=== PATIENT | female | born 1990 | race Caucasian/White ===

== ENCOUNTER → 2017-01-27 | Outpatient (CLI) | payer BC ==
[~2017-01-27] MED LIST: MTR600X PO; POLY335019 PO; PRENTAB26 PO; TYL325X PO
[2017-01-27 14:31] LABS: URINE APPEARANCE CLEAR (CLEAR); URINE BILIRUBIN NEG (NEG); URINE COLOR YELLOW; URINE NITRITE NEG (NEG); URINE PH 7.5 (4.5-7.5); URINE SPECIFIC GRAVITY 1.013 (1.000-1.030); UROBILINOGEN NEG (NEG)
[2017-01-27 14:32] LABS: MANUAL MICROSCOPIC REQUIRED? NO; REVIEW REQ? NO
== END | disposition home or self-care (01) ==
LOC: C.LABSPEC 13:43
PROVIDERS: ATTEND Obstetrics & Gynecology
DX: O09.291 Supervision of pregnancy with other poor reproductive or obstetric history, first trimester (principal)

== ENCOUNTER → 2017-02-03 | Outpatient (CLI) | payer BC ==
[2017-02-06 02:02] LABS: CHLAMYDIA TRACH RNA*** NOT DETECTED (NOT DETECTED); GC (NEIS GONORRHOEAE)RNA** NOT DETECTED (NOT DETECTED)
== END | disposition home or self-care (01) ==
LOC: C.LABSPEC 13:52
PROVIDERS: ATTEND Obstetrics & Gynecology
DX: O09.291 Supervision of pregnancy with other poor reproductive or obstetric history, first trimester (principal); Z3A.00 Weeks of gestation of pregnancy not specified

== ENCOUNTER → 2017-02-03 | Outpatient (CLI) | payer BC ==
[2017-02-03 13:22] LABS: BASO % 0.1 %; BASO ABS # 0.01 K/uL (0-0.2); COMPLETE YES; EOS % 1.7 %; HEMATOCRIT 37.2 % (37-47); IG% 0.2 %; LYMPH % 24.8 %; LYMPH ABS # 2.39 K/uL (1.2-3.4); MEAN CELL VOLUME 90.3 fL (80-100); MEAN CORPUSCULAR HEMOGLOBIN 30.3 pg (25-34); MEAN CORPUSCULAR HGB CONC 33.6 g/dl (32-36); MEAN PLATELET VOLUME 10.2 fL (7.4-10.4); MONO % 6.7 %; NEUT % 66.5 %; PLATELET COUNT 250 K/uL (130-400); RED BLOOD COUNT 4.12 M/uL (4.2-5.4); WHITE BLOOD COUNT 9.63 K/uL (4.8-10.8)
== END | disposition home or self-care (01) ==
LOC: C.LAB1850 12:21
PROVIDERS: ATTEND Obstetrics & Gynecology
DX: O09.291 Supervision of pregnancy with other poor reproductive or obstetric history, first trimester (principal); Z3A.00 Weeks of gestation of pregnancy not specified

== ENCOUNTER → 2017-03-27 | Outpatient (CLI) | payer BC ==
[2017-03-27 16:59] LABS: GTGD 50 Grams
== END | disposition home or self-care (01) ==
LOC: C.LAB1850 15:50
PROVIDERS: ATTEND Obstetrics & Gynecology
DX: O09.292 Supervision of pregnancy with other poor reproductive or obstetric history, second trimester (principal); Z3A.00 Weeks of gestation of pregnancy not specified

== ENCOUNTER → 2017-06-20 | Outpatient (CLI) | payer BC ==
[2017-06-20 17:19] LABS: HEMATOCRIT 32.4 % (37-47)
[2017-06-20 17:43] LABS: GTGD 50 Grams
[2017-06-20 19:36] LABS: URINE APPEARANCE CLEAR (CLEAR); URINE BILIRUBIN NEG (NEG); URINE COLOR YELLOW; URINE NITRITE NEG (NEG); UROBILINOGEN NEG (NEG)
[2017-06-20 19:50] LABS: MANUAL MICROSCOPIC REQUIRED? NO; REVIEW REQ? NO
== END | disposition home or self-care (01) ==
LOC: C.LAB1850 16:04
PROVIDERS: ATTEND Obstetrics & Gynecology
DX: O09.893 Supervision of other high risk pregnancies, third trimester (principal); Z3A.00 Weeks of gestation of pregnancy not specified

== ENCOUNTER → 2017-08-11 | Outpatient (CLI) | payer BC | END | disposition home or self-care (01) | LOC: C.LABSPEC 17:32 | PROVIDERS: ATTEND Obstetrics & Gynecology | DX: Z34.83 Encounter for supervision of other normal pregnancy, third trimester (principal) ==

== ENCOUNTER 2017-09-05 20:40 | Inpatient (IN) | payer BC ==
[~2017-09-05] VITALS: Ht 165.1 cm; Wt 93.2 kg
[2017-09-05] MEDS ORDERED: LACTATED RINGER'S 1000ML 1,000 ML IV SCH (21:13)
[2017-09-05] MEDS ORDERED: LACTATED RINGER'S 1000ML 1,000 ML IV PRN (21:13)
[2017-09-05] MEDS ORDERED: FERR1TAB23 (21:44)
[2017-09-05 21:45] VITALS: Ht 165.1 cm; Wt 93.2 kg
[2017-09-05] MEDS ORDERED: BUPIVACAINE 0.25% 30 ML VIAL ONE (21:58)
[2017-09-05] MEDS ORDERED: EpHEDrine SULFATE INJ 50 MG/ML AMP ONE (21:58)
[2017-09-05 21:59] LABS: HEMATOCRIT 34.8 % (37-47); HEMOGLOBIN 11.8 g/dL (12.0-16.0); MEAN CELL VOLUME 91.3 fL (80-100); MEAN CORPUSCULAR HGB CONC 33.9 g/dl (32-36); MEAN PLATELET VOLUME 10.7 fL (7.4-10.4); PLATELET COUNT 189 K/uL (130-400); RED CELL DISTRIBUTION WIDTH CV 13.9 % (11.5-14.5); WHITE BLOOD COUNT 8.67 K/uL (4.8-10.8)
[2017-09-05] MEDS ORDERED: FENTANYL 2MCG/ML ROPIV 1.25MG/ML 100ML BAG EPI ONE (21:59)
[2017-09-05] MEDS ORDERED: FENTANYL CITRATE INJ 50 MCG/1 ML 2 ML VIAL ONE (21:59)
[2017-09-05 22:17] LABS: ALBUMIN 2.7 gm/dl (3.4-5.0); CALCIUM 8.6 mg/dl (8.5-10.1); CREATININE 0.55 mg/dl (0.60-1.20); POTASSIUM 3.7 mmol/L (3.5-5.1)
[2017-09-05 22:20] LABS: TOTAL PROTEIN 6.4 gm/dl (6.4-8.2)
[2017-09-05] MEDS ORDERED: NALOXONE HCL INJ 1 MG in SODIUM CHLORIDE 0.9% 1000ML 1,000 ML IV PRN (23:08)
[2017-09-05] MEDS ORDERED: LACTATED RINGER'S 1000ML 500 ML IV PRN (23:08)
[2017-09-05] MEDS ORDERED: NALOXONE HCL INJ 0.4 MG/1 ML VIAL/CARP IV PRN (23:15)
[2017-09-05] MEDS ORDERED: FENTANYL 2MCG/ML ROPIV 1.25MG/ML 100ML BAG EPI PRN (23:15)
[2017-09-05] MEDS ORDERED: ONDANSETRON INJ 2 MG/ML 2 ML VIAL IV PRN (23:15)
[2017-09-05] MEDS ORDERED: DiphenhydrAMINE HCL 50 MG/ML VIAL IV PRN (23:15)
[2017-09-05] MEDS ORDERED: NALBUPHINE HCL INJ 10 MG/ML AMP IV PRN (23:15)
[2017-09-05] MEDS ORDERED: EpHEDrine SULFATE INJ 50 MG/ML AMP IV PRN (23:15)
[2017-09-06] MEDS ORDERED: OXYTOCIN 30 UNITS/500ML NSS IV ONE (02:08)
[2017-09-06] MEDS ORDERED: CARBOPROST TROMETHAMINE 250 MCG/ML AMP ONE (02:38)
[2017-09-06] MEDS ORDERED: OXYCODONE/ACETAMINOPHEN 5-325 TAB PO PRN (03:00)
[2017-09-06] MEDS ORDERED: MISOPROSTOL 200 MCG TAB PR SCH (03:00)
[2017-09-06] MEDS ORDERED: ACETAMINOPHEN 325 MG TAB PO PRN (03:00)
[2017-09-06] MEDS ORDERED: CARBOPROST TROMETHAMINE 250 MCG/ML AMP IM ONE (03:00)
[2017-09-06] MEDS ORDERED: OXYTOCIN INJ 20 UNITS in LACTATED RINGER'S 1000ML 1,000 ML IV SCH (03:00)
[2017-09-06] MEDS ORDERED: LANOLIN OINT EXT PRN (03:00)
[2017-09-06] MEDS ORDERED: OXYTOCIN 30 UNITS/500ML NSS IV PRN (03:00)
[2017-09-06] MEDS ORDERED: HYDROCORTISONE ACETATE 25 MG SUPP PR PRN (03:00)
[2017-09-06] MEDS ORDERED: BENZOCAINE 20% AER SPR 82.5 GM CAN EXT PRN (03:00)
[2017-09-06] MEDS ORDERED: SUPERCREAM 0.870 % 15GM JAR EXT PRN (03:00)
[2017-09-06] MEDS ORDERED: DIPHTHERIA/TETANUS/PERTUSSIS 0.5 ML SYR/VIAL IM. ONE (03:00)
--- NOTE | 2017-09-06 03:55 | DELIVERY SUMMARY ---
DATE OF OPERATION: 09/06/2017 VAGINAL DELIVERY SUMMARY: The patient dilated to complete and pushed to deliver a viable female infant, Apgars 8 and 9 via over a second-degree perineal laceration. Mouth and nose bulb suctioned at the perineum. Shoulders and body was delivered with effective maternal expulsive efforts. Infant was vigorous and crying at . Cord clamped and to maternal abdomen and the cord was doubly clamped and cut. Cord blood collection took place in the usual fashion per the patient's private cord collection kit. Cord blood obtained as specimen for baby's blood type. Laceration repaired in the usual fashion using 3-0 Vicryl. Additional left labial laceration reapproximated using 4-0 Vicryl. During delivery of the placenta, the cord avulsed. The placenta was 50% within the vagina. It was grasped and removed. On exam of placenta, succinturate lobe noted. Uterine tone was poor. Dilute IV Pitocin was infusing. Additional 800 mcg of rectal Cytotec was administered. The blood pressure was evaluated. Due to persistent issues with the uterine tone, 0.25mg Hemabate was administered intramuscularly. The uterine tone improved. The bleeding slowed. The estimated blood loss was 600 mL. The cervix and sulci were inspected and intact without any obvious bleeding. The source of the bleeding appeared to be uterine atony. The mother and baby were stable in recovery. I attest to the content of the Intraoperative Record and any orders documented therein. Any exceptions are noted below. MTDD
[2017-09-06 05:55] VITALS: BP 144/83; PULSE 98; TEMP 36.7
--- NOTE | 2017-09-06 06:00 | Anesthesia Procedure Note ---
Anesthesia Epidural Removal Nt Date & Time Sep 06, 2017 at 06:00 Vital Signs Pain Intensity: 0.0 Notes Mental Status: alert / awake / arousable, participated in evaluation Nausea / Vomiting: adequately controlled Pain: adequately controlled Airway Patency, RR, SpO2: stable & adequate BP & HR: stable & adequate Hydration State: stable & adequate Neuraxial Anesthesia: was administered, sensory block is resolving Anesthetic Complications: no major complications apparent, pt satisfied with anesthetic care Epidural: removed without complications, with tip intact
--- NOTE | 2017-09-06 07:05 | Discharge Instructions ---
Discharge Instructions Date of Service Sep 06, 2017. Admission Reason for Admission: Check Rupture Membranes Discharge Discharge Diagnosis / Problem: Vaginal Delivery Discharge Goals Goal(s): Routine recovery after delivery Medications Continue Dispensed Medications: supercream, dermaplast, tucks, lansinoh Activity Recommendations Activity Limitations: per Instructions/Follow-up section . Instructions / Follow-Up Instructions / Follow-Up ACTIVITY RECOMMENDATIONS: * Gradual return to full activity over the next 2-3 weeks. * No lifting - nothing heavier than baby over the next 2-3 weeks. * Do not engage in vigorous exercise, sexual activity or sports until cleared by your physician. * Do not drive or operate any motorized equipment until cleared by your physician. * You may shower/bathe daily. MEDICATIONS: For discomfort or pain, you may use Acetaminophen (Tylenol), Ibuprofen (Advil), or Naproxen (Aleve) following the package directions. For constipation you may use Colace following the package directions. BREAST CARE: If you are not breast feeding: * Wear a supportive bra 24 hours a day for one to two weeks. * Avoid stimulating your breasts and nipples as much as possible during the first few weeks after delivery. * When taking a shower, have the warm water hit your back, not breasts. * When your breasts feel full, apply ice packs. Usually three to four times a day helps ease the discomfort. * Take a mild pain medication (Tylenol / Motrin) when you are uncomfortable. If breast feeding: * Use breast milk to lubricate nipples. Lansinoh cream may be used for sore nipples. You do not need to remove cream prior to breast feeding. If using a different brand of cream, check the label for directions regarding removal of cream prior to nursing. * Wear a supportive bra. * If having problems with breasts or breast feeding, call a building energy consultant or your health care provider. EPISIOTOMY CARE: After delivery, if you have an episiotomy (stitches), the following steps will ease discomfort and aid healing. * For the first 24 hours after delivery, place ice packs next to your episiotomy to help reduce swelling. * After the first 24 hour-period, sitz baths, either portable or in the tub, are suggested. A shower with a shower arm sprayed over the episiotomy may be comforting. * Nathalia care should be done after each voiding and bowel movement. Squirt warm water from a plastic bottle over the perineum (region of the body between the anus and urinary opening) and pat dry. * Use Dermoplast to ease discomfort. Shake container. [place] directly over the episiotomy. Place a Tucks on a clean sanitary pad next to your episiotomy. SPECIAL CARE INSTRUCTIONS: When you are discharged from the hospital, it is important for you to follow the instructions listed below: * During the first week at home, you should be able to care for yourself and your baby. In addition, the usual light household activities are encouraged. * Limit your activities to the way you feel. Do not try to clean the house or move furniture. Be sensible. * If you actively engage in sports and have done so up until the time of your delivery, you may resume these activities as soon as you feel able. This may take up to one month or even longer. Use good judgment. * Continue to take your vitamins for at least six weeks after the of your baby. * Your diet need not be limited unless you were on a special diet before your delivery. Breast-feeding mothers need around 2500 calories per day and at least 64-80 ounces of fluid per day (8 to 10 glasses). * You should eat foods from the four major food groups. Crash diets or fad diets are to be avoided. Eating lean meats, fresh fruits and vegetables, low-fat dairy products, high fiber foods and a regular exercise program, will help you get back to your pre- weight without putting your health at risk. * Constipation is sometimes a problem after delivery. Take a mild laxative as needed. If breast feeding, Milk of Magnesia is acceptable to use. You may use a suppository or Fleets enema if no episiotomy. * A daily shower or tub bath is suggested. Be sure to thoroughly and gently dry the perineum. * A bloody vaginal discharge will usually continue until around four weeks post . A small amount of bleeding may continue for as long as six weeks. Vaginal discharge changes from the bright red bleeding after delivery to pink then brownish and finally yellowish-pink before becoming white and disappearing. * Bleeding may increase with activity. Your first period may come in 4-8 weeks. If you are breast feeding, your period may be delayed even longer. * Damar (sex) can begin whenever both you and your partner feel comfortable and do not have any form of genital infection. It is recommended that you wait at least six weeks for internal and external healing to occur. If you have questions, please talk to your health care practitioner. A condom should be used to prevent infection and . * Foreplay, gentle intercourse and lubrication is very important the first several times to prevent pain. A water-based lubricant such as K-Y jelly or Astroglide may be used. * If you have RH negative blood and your baby is RH positive, you will receive RHOGAM by injection prior to discharge. The nurse will give you a card to keep with you that has the date and place that you received RHOGAM after delivery. * During your care, you had a Rubella screen done to check for the presence of rubella antibodies in your blood. If your test was negative, you will receive a Rubella vaccine prior to discharge. This vaccine may cause a fever, soreness at the injection site and flu-like symptoms. If these symptoms persist, notify your health care practitioner. is not advised for one month after a Rubella vaccine. * Verbalizes understanding of car seat law as reviewed with patient nursing. * Car Seat hand-out given and reviewed with patient by nursing. * Shaken baby information reviewed with patient by nursing. Call you doctor if: * Heavy bleeding (saturating several pads an hour) or passing clots the size of your fist. * A fever >101 degrees F (38.3 degrees C) on two occasions four hours apart and /or chills. * Unusual pain in the pelvic or vaginal areas. * "Baby Blues" lasting longer than two weeks. If you have any questions or concerns, call your health care practitioner at . FOLLOW UP VISIT: * Please call the office at to schedule a 6 week examination. It is important you keep this appointment. It is important for you to make arrangements for either yearly or twice yearly check-ups thereafter. Current Hospital Diet Patient's current hospital diet: Regular OB Diet Discharge Diet Recommended Diet: Regular Diet Pending Studies Studies pending at discharge: no Medical Emergencies . Who to Call and When: Medical Emergencies: If at any time you feel your situation is an emergency, please call 911 immediately. . Non-Emergent Contact Non-Emergency issues call your: Primary Care Provider . . "Provider Documentation" section prepared by Juan Alberto Mckenzie. . VTE Core Measure Inpt VTE Proph given/why not?: Treatment not indicated
[2017-09-06 07:10] VITALS: BP 136/78; PULSE 108; TEMP 36.9; O2SAT 97
[2017-09-06] MEDS: DOCUSATE SODIUM 100 MG CAP PO SCH ×2 (08:19→19:34)
[2017-09-06] MEDS: IBUPROFEN 600 MG TAB PO PRN ×3 (08:20→19:35)
[2017-09-06 12:14] LABS: HEMATOCRIT 30.2 % (37-47); HEMOGLOBIN 10.3 g/dL (12.0-16.0)
[2017-09-06 12:20] VITALS: BP 142/82; PULSE 97; TEMP 37.1; O2SAT 98
[2017-09-06 15:30] VITALS: BP 137/76; PULSE 99; TEMP 36.6
[2017-09-06 19:35] VITALS: BP 134/82; PULSE 106; TEMP 37; O2SAT 96
[2017-09-06 23:50] VITALS: BP 137/82; PULSE 106; TEMP 36.8; O2SAT 94
[2017-09-07] MEDS: IBUPROFEN 600 MG TAB PO PRN ×2 (04:28→08:50)
[2017-09-07 06:44] LABS: HEMATOCRIT 28.9 % (37-47); HEMOGLOBIN 9.6 g/dL (12.0-16.0)
--- NOTE | 2017-09-07 06:47 | Progress Note ---
Subjective Sep 07, 2017. Subjective conversation w/ patient, physical exam Ambulation: ambulating normally Voiding: no voiding problems Passing Gas: Yes Diet Tolerance: Regular Diet Lochia: Moderate Feeding Type: Breast Feeding Review of Systems Constitutional: No fever, No chills Respiratory: No cough Cardiac: No chest pain Abdomen: No nausea, No vomiting Objective Vital Signs Date Time Temp Pulse Resp B/P (MAP) Pulse Ox O2 Delivery O2 Flow Rate FiO2 09/06/17 23:50 36.8 106 18 137/82 (100) 94 Room Air 09/06/17 23:50 Room Air 09/06/17 19:35 37.0 106 16 134/82 (99) 96 Room Air 09/06/17 15:30 Room Air 09/06/17 15:30 36.6 99 20 137/76 (96) Room Air 09/06/17 12:20 37.1 97 16 142/82 (102) 98 Room Air 09/06/17 07:10 36.9 108 16 136/78 (97) 97 Room Air Physical Exam General Appearance: WELL-APPEARING, NO APPARENT DISTRESS Respiratory/Chest: no respiratory distress, no accessory muscle use Cardiovascular: no edema Abdomen: non tender, soft Fundus: Firm Extremities: no calf tenderness Laboratory Results Last 24 Hours Test 09/06/17 12:02 09/07/17 06:30 Hemoglobin 10.3 g/dL 9.6 g/dL Hematocrit 30.2 % 28.9 % Assessment and Plan Day#: 1 Continue Routine Care: Mom doing well and would like to go home, however baby has some issues with emesis and desaturation. Awaiting peds input for dispo. If baby is cleared for discharge mom will go also; if not, will stay until tomorrow. Mom had PPH but Hgb is stabilizing at 9.6 this morning, lochia is now small per patient and patient is tolerating her levels well clinically.
[2017-09-07 07:30] VITALS: BP 133/82; PULSE 97; TEMP 36.5; O2SAT 98
[2017-09-07] MEDS: DOCUSATE SODIUM 100 MG CAP PO SCH ×2 (08:50→20:02)
[2017-09-07 15:30] VITALS: BP 137/87; PULSE 101; TEMP 36.6
[2017-09-07] MEDS ORDERED: SERT25TA PO (19:43)
[2017-09-07] MEDS ORDERED: SERTRALINE HCL 50 MG TAB PO ONE (21:00)
[2017-09-08] VITALS: BP 145/82; PULSE 105; TEMP 36.7
--- NOTE | 2017-09-08 06:49 | Progress Note ---
Subjective Sep 08, 2017. Subjective conversation w/ patient, physical exam Ambulation: ambulating normally Voiding: no voiding problems Passing Gas: Yes Diet Tolerance: Regular Diet Lochia: Moderate Feeding Type: Breast Feeding Review of Systems Constitutional: No fever, No chills Respiratory: No cough Cardiac: No chest pain Abdomen: No nausea, No vomiting Objective Vital Signs Date Time Temp Pulse Resp B/P (MAP) Pulse Ox O2 Delivery O2 Flow Rate FiO2 09/08/17 00:00 Room Air 09/08/17 00:00 36.7 105 18 145/82 (103) Room Air 09/07/17 15:30 Room Air 09/07/17 15:30 36.6 101 20 137/87 (104) Room Air 09/07/17 07:30 Room Air 09/07/17 07:30 36.5 97 16 133/82 (99) 98 Room Air Physical Exam General Appearance: WELL-APPEARING, NO APPARENT DISTRESS Respiratory/Chest: no respiratory distress, no accessory muscle use Cardiovascular: no edema Abdomen: non tender, soft Fundus: Firm Extremities: no calf tenderness Assessment and Plan Day#: 2 Continue Routine Care: Mood improved after sleeping last night. Zoloft started as well, Rx given for home use, discussed following with psych or PCP for prolonged use if patient desires to continue. Instructions reviewed.
[2017-09-08] MEDS: IBUPROFEN 600 MG TAB PO PRN ×2 (07:29→15:27)
[2017-09-08] MEDS: DOCUSATE SODIUM 100 MG CAP PO SCH (08:11)
[2017-09-08 09:13] VITALS: BP 135/81; PULSE 89; TEMP 36.8; O2SAT 98
[2017-09-08 16:15] VITALS: BP 139/80; PULSE 88; TEMP 36.8
[2017-09-08 18:25] VITALS: BP_DIAS 80; PULSE 88; TEMP 36.8
== END 2017-09-08 18:25 | disposition home or self-care (01) | DRG 774 ==
LOC: C.LD 20:40 → C.OPB 20:40 → C.LD 09-06 → C.OBG 09-06 05:58
PROVIDERS: ADMIT Obstetrics & Gynecology; ATTEND Obstetrics & Gynecology
PROC: 0KQM0ZZ Repair Perineum Muscle, Open Approach (ICD-10-PCS; principal; 2017-09-06)
PROC: 10E0XZZ Delivery of Products of Conception, External Approach (ICD-10-PCS; principal; 2017-09-06)
DX: O70.1 Second degree perineal laceration during delivery (principal); O72.1 Other immediate postpartum hemorrhage; Z3A.39 39 weeks gestation of pregnancy; Z37.0 Single live birth

== ENCOUNTER → 2017-10-24 | Outpatient (CLI) | payer BC ==
[~2017-10-24] MED LIST changes: +FERR1TAB23; -MTR600X PO; +SERT25TA PO; -TYL325X PO
== END | disposition home or self-care (01) ==
LOC: C.PAPS 17:31
PROVIDERS: ATTEND Obstetrics & Gynecology
DX: Z12.4 Encounter for screening for malignant neoplasm of cervix (principal)

== ENCOUNTER 2020-10-11 11:49 | Inpatient (IN) ==
[2020-10-11] MEDS ORDERED: OXYTOCIN 30 UNITS/500 ML BAG IV PRN ×2 (11:53)
[2020-10-11 12:32] LABS: Hematocrit (blood only) 33.6 % (37-47); Hemoglobin 11.6 g/dL (12.0-16.0); Mean Corpuscular Hemoglobin 31.6 pg (25-34); Mean Corpuscular Volume 91.6 fL (80-100); Mean Platelet Volume 10.6 fL (7.4-10.4); Platelet Count 215 K/uL (130-400); RDW Coefficient of Variation 14.3 % (11.5-14.5); RDW Standard Deviation 47.6 fL (36.4-46.3); Red Blood Count 3.67 M/uL (4.2-5.4); White Blood Count 7.93 K/uL (4.8-10.8)
[2020-10-11 12:44] LABS: Mean Corpuscular Hgb Conc 34.5 g/dL (32-36)
[2020-10-11 12:50] LABS: Albumin Level 2.7 gm/dl (3.4-5.0); BUN Creatinine Ratio 9.2 (10-20); Calcium 8.9 mg/dl (8.5-10.1); Creatinine Clr Calc Pharmacy 179.6 ml/min; Est GFR (African American) 145.6; Est GFR (Non-African American) 125.6; Potassium 3.2 mmol/L (3.5-5.1)
[2020-10-11 12:53] LABS: Albumin Globulin Ratio 0.8 (0.9-2); Bilirubin,Total 0.3 mg/dl (0.2-1); Globulin 3.5 gm/dl (2.5-4.0); Total Protein 6.2 gm/dl (6.4-8.2)
[2020-10-11] MEDS: LACTATED RINGER'S 1,000 ML IV PRN ×2 (14:20→19:30)
[2020-10-11 17:18] LABS: Creatinine Urine Random 77.1 mg/dl; Protein Creatinine Ratio Urine 0.2 (0-0.2); Total Protein Urine Random 17.8 mg/dl (0-11.9)
[2020-10-11] MEDS ORDERED: SODIUM CHLORIDE 0.9% INJ 10 ML VIAL ONE (18:44)
[2020-10-11] MEDS ORDERED: ePHEDrine sulfate 50 MG/ML AMP ONE (18:44)
[2020-10-11] MEDS ORDERED: BUPIVACAINE 0.25% 30 ML VIAL ONE (18:45)
[2020-10-11] MEDS ORDERED: fentaNYL 2MCG/ML ROPIVACAINE 1.25MG/ML 100 ML BAG EPI ONE (18:45)
[2020-10-11] MEDS ORDERED: fentaNYL citrate 100 MCG/2 ML VIAL ONE (18:45)
[2020-10-12] MEDS ORDERED: fentaNYL 2MCG/ML ROPIVACAINE 1.25MG/ML 100 ML BAG EPI ONE (00:23)
[2020-10-12] MEDS ORDERED: NALOXONE HCL 0.4 MG/1 ML VIAL/CARP IV PRN (01:16)
[2020-10-12] MEDS ORDERED: ePHEDrine sulfate 50 MG/ML AMP IV PRN (01:16)
[2020-10-12] MEDS ORDERED: fentaNYL 2MCG/ML ROPIVACAINE 1.25MG/ML 100 ML BAG EPI PRN (01:16)
[2020-10-12] MEDS ORDERED: diphenhydrAMINE 50 MG/ML VIAL IV PRN (01:16)
[2020-10-12] MEDS ORDERED: NALOXONE HCL 1 MG in SODIUM CHLORIDE 0.9% 1000ML 1,000 ML IV PRN (01:16)
--- NOTE | 2020-10-12 01:17 | Anesthesia Procedure Note ---
Date of Service October 12, 2020 Anesthesia Post Epidural Note Vital Signs Vital Signs: Temp Pulse Resp BP Pulse Ox 37.0 C 112 H 18 148/68 H 96 10/11/20 21:00 10/12/20 01:14 10/12/20 00:30 10/12/20 01:14 10/12/20 00:57 Notes Mental Status: alert / awake / arousable Nausea / Vomiting: adequately controlled Pain: adequately controlled Airway Patency, RR, SpO2: stable & adequate BP & HR: stable & adequate Hydration State: stable & adequate Neuraxial Anesthesia: was administered and sensory block is resolving Anesthetic Complications: no major complications apparent and Pt Satisfied with anesthetic care Epidural: Removed without complications and With tip intact
--- NOTE | 2020-10-12 01:24 | Delivery Summary ---
Vaginal Delivery Summary Date of Service October 12, 2020 Vaginal Delivery Summary DIAGNOSES: 1. Morales intrauterine at 37w3d gestation. 2. Induction of labor for gestational hypertension. 3. Group B Streptococcus Neg. PROCEDURE: Spontaneous vaginal delivery without laceration. SURGEON: Cynthia Hernandez MD. SVP DIGITAL SALES: None. ESTIMATED BLOOD LOSS: 300 mL. COMPLICATIONS: None. PLACENTA: Spontaneous and intact with a 3-vessel cord. DISPOSITION: Stable to labor and delivery. DESCRIPTION: The patient pushed well and brought the head to in OA position. The infant's head was allowed to deliver with contraction force and no further active pushing, with the perineum protected during this time. The shoulders delivered easily with a maternal pushing effort. There was no nuchal cord. The shoulders and body delivered without any difficulty, and the was placed on the maternal abdomen. It was vigorous and moving all extremities, and making respiratory efforts. The cord was doubly clamped by the MD and then cut by the FOB. The placenta delivered spontaneously and was noted to be intact and with a 3VC. The cervix, vagina and perineum were examined and were found to be without defect requiring repair. The fundus was firm and lochia minimal immediately after delivery. [facility] Vaginal Delivery Charge Vaginal Delivery Codes: 09691 global code for the antepartum, delivery, and post-
[2020-10-12] MEDS ORDERED: HYDROCORTISONE ACETATE 25 MG SUPP PR PRN (02:11)
[2020-10-12] MEDS ORDERED: ACETAMINOPHEN 325 MG TAB PO PRN (02:11)
[2020-10-12] MEDS ORDERED: DIPHTHERIA/TETANUS/PERTUSSIS 0.5 ML SYR/VIAL IM ONE (02:11)
[2020-10-12] MEDS ORDERED: SUPERCREAM 0.870% 15 GM JAR EXT PRN (02:11)
[2020-10-12] MEDS ORDERED: BENZOCAINE 20% AER SPR 82.5 GM CAN EXT PRN (02:11)
[2020-10-12] MEDS: IBUPROFEN 600 MG TAB PO PRN ×2 (03:26→08:28)
[2020-10-12] MEDS: PRENATAL VITAMIN 1 TAB PO SCH (08:28)
[2020-10-12] MEDS: DOCUSATE SODIUM 100 MG CAP PO SCH ×2 (08:28→20:25)
[2020-10-12] MEDS ORDERED: LABETALOL HCL 200 MG TAB PO SCH (09:30)
[2020-10-12] MEDS: LABETALOL HCL 200 MG TAB PO SCH (16:11)
[2020-10-13] MEDS: LABETALOL HCL 200 MG TAB PO SCH ×2 (00:10→07:54)
[2020-10-13 06:29] LABS: Hematocrit (blood only) 31.2 % (37-47); Hemoglobin 10.4 g/dL (12.0-16.0); Mean Corpuscular Hemoglobin 31.1 pg (25-34); Mean Corpuscular Hgb Conc 33.3 g/dL (32-36); Mean Corpuscular Volume 93.4 fL (80-100); Mean Platelet Volume 10.5 fL (7.4-10.4); Platelet Count 175 K/uL (130-400); RDW Coefficient of Variation 14.7 % (11.5-14.5); RDW Standard Deviation 49.5 fL (36.4-46.3); Red Blood Count 3.34 M/uL (4.2-5.4); White Blood Count 9.83 K/uL (4.8-10.8)
[2020-10-13] MEDS: DOCUSATE SODIUM 100 MG CAP PO SCH (07:55)
[2020-10-13] MEDS: PRENATAL VITAMIN 1 TAB PO SCH (07:55)
--- NOTE | 2020-10-13 08:13 | Obstetrical Progress Note ---
Date of Service October 13, 2020 Assessment & Plan (1) state: 30 yo PP1 from after IOL for gHTN, doing well -Meeting all pp milestones -O+/rubella immune/ -f/u 6 weeks for appt (2) Gestational hypertension: -On labetalol 200mg q8h, showed improvement in BPs with it. BP slightly more elevated this AM but is also due for dose right now. Will give dose and recheck. Pt strongly desires d/c, as long as BPs remain appropriate this AM, I think ok for d/c w/ BP check friday or friday. Pt agreeable. With close BP f/u, will also have close anxiety f/u as well as pt wants to see how she does at home. Subjective Ambulation: ambulating normally Voiding: no voiding problems Passing Gas:: Yes Diet Tolerance:: regular diet Lochia:: Small Feeding Type:: breast feeding Pain well managed with medication. Pt notes she was very anxious after last delivery and started on meds for short period of time. Unsure what it was Review of Systems Denies fevers, chills, n/v, HARRELL, CP, SOB, RUQ/epigastric pain Physical Exam Constitutional WD/WN, vitals as above no acute distress Respiratory normal respiratory effort, lungs clear to auscultation Cardiovascular RRR, no murmur, no edema Gastrointestinal (Abdomen) Percussion/Palpation: abdomen soft; abdomen nontender fundus firm at umbilicus and NT Musculoskeletal BLE symmetric, nonerythematous, nontender Results & Data ([facility]) Vital Signs (Past 12 Hours) Vital Signs Temp Pulse Resp BP Pulse Ox 10/13/20 07:37 98.2 F 93 H 20 155/86 H 97 10/13/20 05:00 102 H 147/82 H 10/13/20 00:09 97.7 F 79 18 136/80 10/12/20 20:25 97.2 F L 80 18 147/83 H
== END 2020-10-13 14:05 | disposition home or self-care (01) | DRG 807 ==
LOC: 4S1 11:49 → 4S2 10-12 04:00